=== PATIENT | male | born 1965 | race Two or more races ===

== ENCOUNTER 2022-11-21 17:35 | Inpatient (IN) | payer OTHER ==
[2022-11-21] MEDS ORDERED: morphine CARPU-JECT 4 MG/1 ML DISP.SYRIN IVPUSH ONE (18:32)
[2022-11-21] MEDS ORDERED: morphine SULFATE 4 MG/ML VIAL ONE (18:37)
[2022-11-21] MEDS ORDERED: SODIUM CHLORIDE 0.9% 500 ML INFUS.BAG IV ONE (18:53)
[2022-11-21 19:17] LABS: BASO % 0.2 % (0-2.0); EOS % 0.1 % (0-4.5); HEMOGLOBIN 15.4 GM/dL (11.7-16.9); LYMPH % 13.3 % (8-40); MCHC 32.9 g/dl (32.0-35.9); MEAN CELL VOLUME 91.5 fl (80-96); MEAN PLT VOLUME 8.6 fl (7.5-11.1); MONO % 5.9 % (3.8-10.2); NEUT % 80.5 % (42.8-82.8); PLATELET COUNT 231 10^3/uL (134-434); RBC 5.14 M/mm3 (4.00-5.60); RDW 13.3 % (11.9-15.9)
[2022-11-21 19:40] LABS: POTASSIUM 3.6 mmol/L (3.5-5.1)
[2022-11-21 19:43] LABS: CALCIUM 9.4 mg/dL (8.5-10.1)
[2022-11-21 19:44] LABS: BLOOD UREA NITROGEN 18.9 mg/dL (7-18)
[2022-11-21 19:47] LABS: CREATININE 1.3 mg/dL (0.55-1.3)
[2022-11-21 19:48] LABS: BILIRUBIN,TOTAL 0.3 mg/dL (0.2-1)
[2022-11-21 19:49] LABS: TOT PROT 7.8 g/dl (6.4-8.2)
[2022-11-21 19:55] LABS: LACTIC ACID 3.1 mmol/L (0.4-2.0)
[2022-11-21] MEDS ORDERED: LACTATED RINGERS SOLUTION 1000 ML INFUS.BAG IV ONE (20:04)
[2022-11-21] MEDS ORDERED: ACETAMINOPHEN 1000 MG/100 ML BAG IVPB ONE (21:21)
[2022-11-21 21:28] LABS: EPI CELLS 5 /uL (0-25.1); HYALINE CASTS 0 /uL (0-3.1); URINE APPEARANCE CLEAR; URINE BACTERIA 5 /uL (0-1359); URINE BILIRUBIN NEGATIVE (NEGATIVE); URINE COLOR YELLOW; URINE GLUCOSE (UA) 2+ (NEGATIVE); URINE KETONE 1+ (NEGATIVE); URINE LEUK ESTERASE NEGATIVE (NEGATIVE); URINE NITRITE NEGATIVE (NEGATIVE); URINE PROTEIN NEGATIVE (NEGATIVE); URINE RBC 105 /uL (0-23.9); URINE UROBILINOGEN 0.2 mg/dL (0.2-1.0); URINE WBC 1 /uL (0-25.8)
[2022-11-21] MEDS: morphine CARPU-JECT 4 MG/1 ML DISP.SYRIN IVPUSH ONE ×2 (21:43→21:45)
[2022-11-21] MEDS ORDERED: KETOROLAC TROMETHAMINE 15 MG/ML VIAL IVPUSH ONE (21:45)
[2022-11-21] MEDS ORDERED: KETOROLAC TROMETHAMINE 15 MG/ML VIAL ONE (21:48)
[2022-11-21] MEDS ORDERED: ACETAMINOPHEN INJECTION 100 ML IVPB ONE (21:48)
[2022-11-21] MEDS ORDERED: TAMSULOSIN HCL 0.4 MG CAP PO ONE (22:53)
[2022-11-21 22:59] LABS: LACTIC ACID 4.5 mmol/L (0.4-2.0)
[2022-11-21] MEDS ORDERED: FAMOTIDINE 20 MG/50 ML IVPB 20 MG/50 ML MG IVPB ONE ×2 (23:22→23:32)
[2022-11-21] MEDS ORDERED: ONDANSETRON 4 MG/2 ML VIAL IVPUSH ONE (23:22)
[2022-11-21] MEDS ORDERED: ONDANSETRON 4 MG/2 ML VIAL ONE (23:32)
[2022-11-22] MEDS ORDERED: KETOROLAC TROMETHAMINE 15 MG/ML VIAL IVPUSH PRN (02:48)
[2022-11-22] MEDS ORDERED: SODIUM CHLORIDE 1,000 ML IV SCH (03:00)
[2022-11-22] MEDS ORDERED: CEFTRIAXONE 1 GM/50 ML BAG ONE (03:31)
[2022-11-22] MEDS: CEFTRIAXONE 1 GM in DEXTROSE 5%-WATER - 50 ML IVPB SCH (03:35)
[2022-11-22] MEDS ORDERED: TAMSULOSIN HCL 0.4 MG CAP ONE (04:54)
[2022-11-22 06:28] LABS: HEMATOCRIT 45.9 % (35.4-49); HEMOGLOBIN 15.2 GM/dL (11.7-16.9); MCH 30.4 pg (25.7-33.7); MCHC 33.2 g/dl (32.0-35.9); MEAN CELL VOLUME 91.6 fl (80-96); MEAN PLT VOLUME 8.4 fl (7.5-11.1); PLATELET COUNT 223 10^3/uL (134-434); RBC 5.01 M/mm3 (4.00-5.60); RDW 13.5 % (11.9-15.9); WHITE BLOOD COUNT 12.8 K/mm3 (4.0-10.0)
[2022-11-22 06:43] LABS: POTASSIUM 4.3 mmol/L (3.5-5.1)
[2022-11-22 06:45] LABS: CALCIUM 8.6 mg/dL (8.5-10.1)
[2022-11-22 06:46] LABS: ALBUMIN 3.6 g/dl (3.4-5.0); BLOOD UREA NITROGEN 18.1 mg/dL (7-18)
[2022-11-22 06:49] LABS: CREATININE 1.5 mg/dL (0.55-1.3); PHOSPHOROUS 3.5 mg/dL (2.5-4.9)
[2022-11-22 06:51] LABS: BILIRUBIN,TOTAL 0.5 mg/dL (0.2-1); TOT PROT 7.3 g/dl (6.4-8.2)
[2022-11-22] MEDS ORDERED: INSULIN SLIDING SCALE (NOVOLOG) 1 VIAL SQ SCH (07:00)
[2022-11-22 07:15] LABS: LACTIC ACID 2.4 mmol/L (0.4-2.0)
[2022-11-22 07:30] VITALS: BMI 32.6
[2022-11-22] MEDS ORDERED: ACETAMINOPHEN 325 MG TABLET (FP) PO PRN (07:32)
[2022-11-22] MEDS: INSULIN SLIDING SCALE (NOVOLOG) 1 VIAL SQ SCH ×4 (08:07→23:08)
[2022-11-22] MEDS: DEXTROSE 5%-0.45% SALINE 1,000 ML IV SCH ×2 (08:50→16:53)
[2022-11-22] MEDS ORDERED: cefTRIAXone SODIUM 1 GM VIAL ONE (09:06)
[2022-11-22] MEDS: TAMSULOSIN HCL 0.4 MG CAP PO SCH (09:07)
[2022-11-22] MEDS ORDERED: ENOXAPARIN NA (PORCINE) 40 MG/0.4 ML DISP.SYRIN SQ SCH (10:00)
[2022-11-22] MEDS ORDERED: INSULIN (NOVOLOG) ASPART 100 UNITS/ML 10ML VIAL ONE ×2 (11:06→16:39)
[2022-11-22] MEDS ORDERED: HYDROmorphone HCl 2 MG/ML VIAL IVPUSH PRN (11:11)
[2022-11-22] MEDS ORDERED: ACETAMINOPHEN 1000 MG/100 ML BAG IVPB PRN (11:11)
[2022-11-22] MEDS ORDERED: ATORVASTATIN CA 10 MG TABLET (FP) PO SCH (22:00)
[2022-11-23 05:06] VITALS: RESP 18
[2022-11-23] MEDS: DEXTROSE 5%-0.45% SALINE 1,000 ML IV SCH (06:10)
[2022-11-23] MEDS: INSULIN SLIDING SCALE (NOVOLOG) 1 VIAL SQ SCH ×2 (06:13→11:48)
[2022-11-23] MEDS ORDERED: INSULIN (NOVOLOG) ASPART 100 UNITS/ML 10ML VIAL ONE ×2 (06:14→11:47)
[2022-11-23] MEDS: TAMSULOSIN HCL 0.4 MG CAP PO SCH (08:41)
[2022-11-23] MEDS: CEFTRIAXONE 1 GM in DEXTROSE 5%-WATER - 50 ML IVPB SCH (09:45)
[2022-11-23] MEDS ORDERED: LOSARTAN POTASSIUM 25 MG TABLET PO SCH (10:00)
[2022-11-23 11:01] VITALS: BP 168/90; PULSE 101; TEMP 98
[2022-11-23 11:29] LABS: BASO % 0.2 % (0-2.0); EOS % 0.9 % (0-4.5); HEMATOCRIT 43.8 % (35.4-49); HEMOGLOBIN 14.7 GM/dL (11.7-16.9); LYMPH % 22.8 % (8-40); MCH 30.5 pg (25.7-33.7); MCHC 33.5 g/dl (32.0-35.9); MEAN CELL VOLUME 91.1 fl (80-96); MEAN PLT VOLUME 8.3 fl (7.5-11.1); MONO % 9.8 % (3.8-10.2); NEUT % 66.3 % (42.8-82.8); PLATELET COUNT 213 10^3/uL (134-434); RDW 13.4 % (11.9-15.9); WHITE BLOOD COUNT 9.1 K/mm3 (4.0-10.0)
[2022-11-23 11:57] LABS: BLOOD UREA NITROGEN 10.1 mg/dL (7-18); CALCIUM 8.8 mg/dL (8.5-10.1); MAGNESIUM 2.1 mg/dL (1.8-2.4)
[2022-11-23 12:01] LABS: PHOSPHOROUS 2.6 mg/dL (2.5-4.9)
== END 2022-11-23 14:41 | disposition home or self-care (01) | DRG 465 ==
LOC: JER 17:35 → JERBED 11-22 00:34 → J6S 11-22 08:36
PROVIDERS: ADMIT Internal Medicine; ATTEND Internal Medicine
DX: N13.2 Hydronephrosis with renal and ureteral calculous obstruction (principal); E87.20 Acidosis, unspecified; I10 Essential (primary) hypertension; E78.5 Hyperlipidemia, unspecified; E11.9 Type 2 diabetes mellitus without complications
CPT/HCPCS: 36415; 74177-TC; 76705-TC; 80048; 80053; 81003; 82962; 83605; 83690; 83735; 84100; 85025; 85027; 87040; 87086; 93005; 93010; 99285-25; Q9967